=== PATIENT | female | born 1980 | race Caucasian/White ===

== ENCOUNTER 2021-07-26 07:56 | Outpatient (CLI) | payer OTHER, SELFPAY ==
--- NOTE | ~2021-07-26 | MM_ITS ---
EXAMINATION: MM screening girma BI w arpan HISTORY: Screening TECHNIQUE: Craniocaudal and mediolateral oblique 3-D tomosynthesis images were obtained and synthetic 2-D images were generated. CAD analysis was submitted and interpreted. COMPARISON: No prior mammogram is available for comparison at this institution. BREAST PARENCHYMAL COMPOSITION: The breasts are extremely dense, which lowers the sensitivity of mamm ography. FINDINGS: There are clustered indeterminate calcifications in the upper outer quadrant of the right b reast. There are no suspicious masses, calcifications or architectural distortion in the left breast to suggest malignancy. IMPRESSION: 1. Clustered indeterminate right breast calcifications. 2. Magnification views are recommended. BI-RADS Category 0: Incomplete: Needs additional imaging evaluation. Reviewed, dictated and finalized at location A.
== END 2021-07-26 07:57 | disposition home or self-care (01) ==
LOC: ANHIMG 08:00
PROVIDERS: Visit Provider Obstetrics & Gynecology
DX: Z12.31 Encounter for screening mammogram for malignant neoplasm of breast (principal); R92.8 Other abnormal and inconclusive findings on diagnostic imaging of breast
CPT/HCPCS: 77063; 77067

== ENCOUNTER 2021-08-26 12:10 | Outpatient (CLI) | payer OTHER, SELFPAY ==
--- NOTE | ~2021-08-26 | MMUS_ITS ---
EXAMINATION: MM diagnostic girma RT w arpan, US breast RT complete HISTORY: Clustered indeterminate right breast calcifications reported on 07/26/2021 bilateral screenin g mammogram TECHNIQUE: ML view of right breast. Magnification MLO and CC views. CAD analysis was submitted and in terpreted. High resolution complete right breast ultrasound including all 4 quadrants and subareolar area was performed. COMPARISON: 07/26/2021 bilateral screening mammogram FINDINGS: MAMMOGRAPHIC FINDINGS: Occasional benign microcalcifications are noted. No suspicious microcalcifications are noted. There is extremely dense fibroglandular stroma which may obscure masses. Complete right breast ultras ound examination was performed. ULTRASOUND: No suspicious mass or shadowing or other significant sonographic finding is identified. IMPRESSION: 1. Benign findings 2. Routine mammographic screening is recommended BI-RADS Category 2: Benign finding(s). Reviewed, dictated and finalized at location A. NDER MACHINE OPERATOR IMPRESSION: 1. Benign findings 2. Routine mammographic screening is recommended BI-RADS Category 2: Benign finding(s).
== END 2021-08-26 12:11 | disposition home or self-care (01) ==
LOC: ANHIMG 12:12
PROVIDERS: PCP Internal Medicine; Visit Provider Obstetrics & Gynecology
DX: R92.8 Other abnormal and inconclusive findings on diagnostic imaging of breast (principal)
CPT/HCPCS: 76641; 77061; 77065; G0279

== ENCOUNTER 2022-08-23 07:54 | Outpatient (CLI) | payer OTHER, SELFPAY ==
--- NOTE | ~2022-08-23 | MM_ITS ---
EXAMINATION: MM screening [facility] BI w arpan HISTORY: Screening mammogram TECHNIQUE: Craniocaudal and mediolateral oblique 3-D tomosynthesis images were obtained and synthetic 2-D images were generated. CAD analysis was submitted and interpreted. COMPARISON: 08/26/2021, 07/26/2021 BREAST PARENCHYMAL COMPOSITION: The breasts are extremely dense, which lowers the sensitivity of mamm ography. FINDINGS: No suspicious mass, calcification, or architectural distortion are identified in either annette ast to suggest malignancy. There has been no suspicious interval change. IMPRESSION: 1. No mammographic evidence of malignancy. 2. Recommend routine screening mammography in one year. BI-RADS Category 1: Negative Reviewed, dictated and finalized at location A. EL ENGINE ASSEMBLER
== END 2022-08-23 07:55 | disposition home or self-care (01) ==
PROVIDERS: PCP Internal Medicine; Visit Provider Obstetrics & Gynecology
DX: Z12.31 Encounter for screening mammogram for malignant neoplasm of breast (principal)
CPT/HCPCS: 77063; 77067

== ENCOUNTER 2024-01-16 15:40 | Outpatient (CLI) | payer OTHER, SELFPAY ==
--- NOTE | ~2024-01-16 | MM_ITS ---
EXAMINATION: MM screening girma BI w arpan HISTORY: Screening mammogram TECHNIQUE: Craniocaudal and mediolateral oblique 3-D tomosynthesis images were obtained and synthetic 2-D images were generated. CAD analysis was submitted and interpreted. COMPARISON: 08/23/2022 bilateral screening mammogram 08/26/2021 right diagnostic mammogram and complete right breast ultrasound examination 07/26/2021 bilateral screening mammogram BREAST PARENCHYMAL COMPOSITION: The breasts are extremely dense, which lowers the sensitivity of mamm ography. FINDINGS: There is no evidence of suspicious mass, calcification, or architectural distortion to sugg est malignancy in either breast. There has been no suspicious interval change. IMPRESSION: 1. No mammographic evidence of malignancy. 2. Recommend routine screening mammography in one year. BI-RADS Category 1: Negative Reviewed, dictated and finalized at location A.
== END 2024-01-16 15:41 | disposition home or self-care (01) ==
LOC: ANHIMG 15:44
PROVIDERS: PCP Internal Medicine; Visit Provider Obstetrics & Gynecology
DX: Z12.31 Encounter for screening mammogram for malignant neoplasm of breast (principal)
CPT/HCPCS: 77063; 77067

== ENCOUNTER 2025-02-09 14:39 | Outpatient (CLI) | payer OTHER, SELFPAY ==
--- NOTE | ~2025-02-09 | MM_ITS ---
EXAMINATION: MM screening girma BI w arpan HISTORY: Screening TECHNIQUE: Craniocaudal and mediolateral oblique 3-D tomosynthesis images were obtained and synthetic 2-D images were generated. CAD analysis was submitted and interpreted. COMPARISON: Comparison to multiple prior studies sequentially, with oldest reviewed study dated 10/2020. BREAST PARENCHYMAL COMPOSITION: Dense: The breasts are extremely dense, which lowers the sensitivity of mammography. FINDINGS: There is no evidence of suspicious mass, calcification, or architectural distortion to sugg est malignancy in either breast. There has been no suspicious interval change. IMPRESSION: 1. No mammographic evidence of malignancy. 2. Recommend routine screening mammography in one year. BI-RADS Category 1: Negative Reviewed, dictated and finalized at location B.
--- OUTSIDE RECORDS SUMMARY | 2025-02-09 14:43 | XMS_ITS | Referral Summary ---
Author Organization [address] Address [address] [place] [id number] Care Team Providers Care Reheater Name Role Phone Mee Linda MD Primary Care Provider [phone]- [phone] Allergies No known active allergies Medications ofloxacin (OCUFLOX) 0.3 % ophthalmic solutionIndications :Bacterial conjunctivitis of both eyes instill 2 drops in affected eyes every 2 hours for 2 days, then 2 drops 4 times daily on days 3 through 7 5 mL Active Active Problems No known active problems Social History Tobacco Use Types Packs/Day Years Used Date Smoking Tobacco: Never Smokeless Tobacco: Never Tobacco Cessation:Counseling Given: Not Answered Personal Safety Answer Date Recorded Getting School Help Needed Not on file 12/08 Comments Unknown Sex and Gender Information Value Date Recorded Sex Assigned at Not on file Legal Sex Female 12:53 PM BEAMER HAND Gender Identity Not on file Sexual Orientation Not on file Last Filed Vital Signs Vital Sign Reading Time Taken Comments Blood Pressure 144/90 08/22/2023 4:44 PM BEAMER HAND Pulse 69 08/22/2023 4:44 PM BEAMER HAND Temperature 36.9 C (98.5 F) 08/22/2023 4:44 PM BEAMER HAND Respiratory Rate 18 08/22/2023 4:44 PM BEAMER HAND Oxygen Saturation 99% 08/22/2023 4:44 PM BEAMER HAND Inhaled Oxygen Concentration - - Weight 49.9 kg (110 lb) 08/22/2023 4:44 PM BEAMER HAND Height 154.9 cm (5' 1 ) 08/22/2023 4:44 PM BEAMER HAND Body Mass Index 20.78 08/22/2023 4:44 PM BEAMER HAND Plan of Treatment Not on file Insurance [facility] CHOICE PLUS Care Teams Reheater Relationship Specialty Start Date End Date Mee Linda MD [employer] [place] [id number] PCP - General Internal Medicine 08/22/23
--- OUTSIDE RECORDS SUMMARY | 2025-02-09 14:43 | XMS_ITS | Clinical Summary ---
Author Organization [address] Address [address] [place] [id number] Care Team Providers Care Cath Lab Tech Name Role Phone Mee Linda MD Primary Care Provider +1- [phone] Allergies No known active allergies Medications ofloxacin (OCUFLOX) 0.3 % ophthalmic solutionIndications :Bacterial conjunctivitis of both eyes instill 2 drops in affected eyes every 2 hours for 2 days, then 2 drops 4 times daily on days 3 through 7 5 mL 3 Active Active Problems No known active problems Surgical History Surgery Date Site/Laterality Comments SECTION 2006, 2008 Family History Medical History Relation Name Comments Cancer Father Antony Alcohol abuse Mother Tricia Arthritis Mother Tricia Hypertension Mother Tricia Developmental delay Son Delmar Relation Name Status Comments Father Bill Mother Tricia Son Delmar Social History Tobacco Use Types Packs/Day Years Used Date Smoking Tobacco: Never Smokeless Tobacco: Never Tobacco Cessation:Counseling Given: Not Answered Personal Safety Answer Date Recorded Getting School Help Needed Not on file 12/08 Comments Unknown Sex and Gender Information Value Date Recorded Sex Assigned at Not on file Legal Sex Female 12:53 PM CREDIT OR LOANS OFFICER Gender Identity Not on file Sexual Orientation Not on file Obstetrics History Last Filed Vital Signs Vital Sign Reading Time Taken Comments Blood Pressure 144/90 08/22/2023 4:44 PM CREDIT OR LOANS OFFICER Pulse 69 08/22/2023 4:44 PM CREDIT OR LOANS OFFICER Temperature 36.9 C (98.5 F) 08/22/2023 4:44 PM CREDIT OR LOANS OFFICER Respiratory Rate 18 08/22/2023 4:44 PM CREDIT OR LOANS OFFICER Oxygen Saturation 99% 08/22/2023 4:44 PM CREDIT OR LOANS OFFICER Inhaled Oxygen Concentration - - Weight 49.9 kg (110 lb) 08/22/2023 4:44 PM CREDIT OR LOANS OFFICER Height 154.9 cm (5' 1 ) 08/22/2023 4:44 PM CREDIT OR LOANS OFFICER Body Mass Index 20.78 08/22/2023 4:44 PM CREDIT OR LOANS OFFICER Plan of Treatment Health Maintenance Due Date Last Done Comments Breast Cancer Screening-Mammogram 1980 Cervical Cancer Screening 1980 Depression Screening 1980 Hepatitis C Screening 1980 DTaP/Tdap/Td Vaccine (1 - Tdap) 1991 Varicella Vaccines (1 of 2 - 13+ 2-dose series) 1993 Hepatitis B Screening 1998 Regular Well Visit/Exam 18-64 1998 Covid-19 Vaccine ( season) 2024 06/09/2022, 07/26/2021, 11/12/2020, Additional history exists Influenza Vaccine (#1) 2024 06/27/2021 HPV Vaccines Aged Out No longer eligi ble based on patient's age to complete this topic Pneumococcal vaccine <65 Aged Out No longer eligible based on patient's age to complete this topic Insurance [facility] CHOICE PLUS [facility] HMO/PPO Address: [facility] [address] [place] [address] Care Teams Cath Lab Tech Relationship Specialty Start Date End Date Mee Linda MD [address] [employer] [address] [place] [id number] PCP - General Internal Medicine 11/29/23
== END 2025-02-09 14:40 | disposition home or self-care (01) ==
LOC: ANHIMG 14:41
PROVIDERS: PCP Obstetrics & Gynecology; Visit Provider Obstetrics & Gynecology
DX: Z12.31 Encounter for screening mammogram for malignant neoplasm of breast (principal)
CPT/HCPCS: 77063; 77067